=== PATIENT | female | born 1965 | race Caucasian/White ===

== ENCOUNTER 2017-08-09 09:32 | Emergency (ER) | payer OTHER ==
[~2017-08-09] VITALS: Ht 167.6 cm; Wt 102.2 kg
[2017-08-09 09:37] VITALS: BP 154/104; PULSE 87; RESP 16; TEMP 98; O2SAT 95
[2017-08-09] MEDS ORDERED: predniSONE 20 MG TAB PO ONE (10:00)
[2017-08-09] MEDS ORDERED: guaiFENesin/CODEINE SYRUP 200 MG/20 MG/10 ML CUP PO ONE (10:00)
--- NOTE | 2017-08-09 10:02 | PD ---
HPI Chief Complaint: Cold / Flu Symptoms Time Seen by Provider: 09:48 Travel History International Travel<30 days: No Contact w/Intl Traveler<30days: No Traveled to known affect area: No History of Present Illness HPI 51yo F with PMH of HTN presents to the ED with c/o cough, nasal congestion and chest congestion for 3 days. Denies any fever, chest pain, sob, n/v, abdominal pain, diarrhea, focal weakness or numbness. Took robitussin last night and didnt work. Symptoms are worst at night and lying down. Said she has been coughing so much, now her throat hurts and there was some pain in epigastric region when she coughs. Pt smokes 3 times a week. PFSH Past Medical History Cardiovascular Problems: Yes (htn on meds) ?: Not Social History Tobacco Use: No Allergies-Medications (Allergen,Severity, Reaction): Coded Allergies: No Known Allergies (Unverified , 08/09/17) Reported Meds & Prescriptions Reported Meds & Active Scripts Active Robitussin Lingering Cold (Dextromethorphan HBr) 15 Mg Cap 30 Mg PO Q8H PRN 5 Days Ventolin Hfa 18 GM Inh (Albuterol Sulfate) 90 Mcg/Act Aer 2 Puff INH Q4H PRN Deltasone (Prednisone) 20 Mg Tab 20 Mg PO BID 5 Days Reported Hydrochlorothiazide 25 Mg Tab 25 Mg PO DAILY Review of Systems Except as stated in HPI: all other systems reviewed are Neg Physical Exam Narrative GENERAL: 51yo F in mild distress. SKIN: Focused skin assessment warm/dry. HEAD: Atraumatic. Normocephalic. EYES: Pupils equal and round. No scleral icterus. No injection or drainage. ENT: Throat: Uvula midline. No tonsillar exudate. NECK: Trachea midline. No JVD. CARDIOVASCULAR: Regular rate and rhythm. No murmur appreciated. RESPIRATORY: No accessory muscle use. Expiratory wheezing bilaterally. GASTROINTESTINAL: Abdomen soft, non-tender, nondistended. MUSCULOSKELETAL: No obvious deformities. No clubbing. No cyanosis. No edema. NEUROLOGICAL: Awake and alert. No obvious cranial nerve deficits. Motor grossly within normal limits. Normal speech. PSYCHIATRIC: Appropriate mood and affect; insight and judgment normal. Data Data Last Documented VS Vital Signs Date Time Temp Pulse Resp B/P (MAP) Pulse Ox O2 Delivery O2 Flow Rate FiO2 08/09/17 09:58 96 08/09/17 09:37 98.0 87 16 154/104 (121) Orders Orders Influenzae A/B Antigen (08/09/17 09:55) Electrocardiogram (08/09/17 ) Chest, Single Ap (08/09/17 ) Albuterol-Ipratropium Neb (Duoneb Neb) (08/09/17 10:00) Prednisone (Deltasone) (08/09/17 10:00) Guaifen-Cod 200-20 Mg/10ml Liq (Robituss (08/09/17 10:00) Ed Discharge Order (08/09/17 11:35) MDM Medical Decision Making Medical Screen Exam Complete: Yes Emergency Medical Condition: Yes Interpretation(s) EKG: NSR 71bpm. Normal axis. No ST segment elevation or depression. Differential Diagnosis URI vs. bronchitis vs. COPD vs. pneumonia Narrative Course 51yo F with cold like symptoms for 3 days. Denies any chest pain or sob but coughing is worst at night and is a cig smoker. Pt does have wheezing bilaterally so duonebs x3 and prednisone ordered. Also given robitussin with codene. Pt reevaluated at bedside and feels much better. Pt still with mild end expiratory wheezing bilaterally but improve air entry. Pt still denies any chest pain or sob. CXR normal. Influenza negative. Return precautions given. Diagnosis Primary Impression: URI (upper respiratory infection) Qualified Codes: J06.9 - Acute upper respiratory infection, unspecified Patient Instructions: General Instructions Departure Forms: Tests/Procedures Additional Instructions: Please follow up with your primary care physician in 2-3 days. Return to the ED if symptoms worsen. Med/Other Pt SpecificInfo: Prescription(s) given Scripts Dextromethorphan (Robitussin Lingering Cold) 15 Mg Cap 30 MG PO Q8H Y for COUGH for 5 Days, #30 CAP 0 Refills Prov: Boyce,Mariluz DO 08/09/17 Albuterol 18 GM Inh (Ventolin Hfa 18 GM Inh) 90 Mcg/Act Aer 2 PUFF INH Q4H Y for SHORTNESS OF BREATH, #1 INHALER 0 Refills Prov: BoyceMariluz DO 08/09/17 Prednisone (Deltasone) 20 Mg Tab 20 MG PO BID for 5 Days, #10 TAB 0 Refills Prov: Mariluz Boyce DO 08/09/17 Disposition: 01 DISCHARGE HOME Condition: Stable Mariluz Boyce DO Aug 09, 2017 10:02
[2017-08-09] MEDS ORDERED: HYDR25TA5 PO (10:03)
[2017-08-09] MEDS: RESP: ALBUTEROL 2.5 MG/IPRATROPIUM 0.5 MG NEB (SCH) INH ×2 (10:10→10:11)
--- NOTE | 2017-08-09 10:31 | RADRPT ---
EXAM DATE/TIME: 08/09/2017 10:16 [facility] COMPARISON: No previous studies available for comparison. INDICATIONS : Short of breath, cough, congestion x 3 days. MEDICAL HISTORY : Hypertension. Smoker. SURGICAL HISTORY : None. ENCOUNTER: Initial ACUITY: 3 days PAIN SCORE: 0/10 LOCATION: chest FINDINGS: A single view of the chest demonstrates the lungs to be symmetrically aerated without evidence of mas s, infiltrate or effusion. The cardiomediastinal contours are unremarkable. Osseous structures are intact. CONCLUSION: Normal examination for a patient of this age. Vadim Myles MD on August 09, 2017 at 10:28 Board Certified Radiologist. This report was verified electronically.
[2017-08-09] MEDS ORDERED: VENTAER INH (11:16)
[2017-08-09] MEDS ORDERED: PRED-503 PO (11:16)
[2017-08-09] MEDS ORDERED: ROBICAP2 PO (11:16)
--- NOTE | 2017-08-09 13:39 | EKG ---
Date Performed: 08/09/2017 Time Performed: 10:06:32 PTAGE: 51 years EKG: Sinus rhythm NORMAL ECG NO PREVIOUS TRACING DOCTOR: Celso Llamas Interpretating Date/Time 08/09/2017 13:38:17
== END 2017-08-09 11:48 | disposition home or self-care (01) ==
LOC: PHED 09:32
DX: J06.9 Acute upper respiratory infection, unspecified (principal); I10 Essential (primary) hypertension
CPT/HCPCS: 71045; 87804; 93005; 94640; 94664; 99285; J7512

== ENCOUNTER 2017-09-24 03:13 | Emergency (ER) | payer SELFPAY ==
[~2017-09-24 03:13] MED LIST: HYDR25TA5 PO; PRED-503 PO; ROBICAP2 PO; VENTAER INH
[2017-09-24] MEDS ORDERED: ASPIRIN 81 MG CHEW TAB PO ONE (03:30)
[2017-09-24] MEDS ORDERED: NITROGLYCERIN 0.4 MG SL 25 TABS/BTL SL SCH (03:30)
== END 2017-09-24 03:20 | disposition left against medical advice (07) ==
LOC: PHED 03:13
DX: R07.9 Chest pain, unspecified (principal); Z53.21 Procedure and treatment not carried out due to patient leaving prior to being seen by health care provider

== ENCOUNTER 2017-10-05 19:14 | Emergency (ER) | payer SELFPAY ==
[~2017-10-05] VITALS: Ht 167.6 cm; Wt 101.0 kg
[2017-10-05 19:33] VITALS: BP 148/84; PULSE 89; RESP 16; TEMP 98.3; O2SAT 96
[2017-10-05] MEDS ORDERED: IBUPROFEN 800 MG TAB PO ONE (20:00)
[2017-10-05] MEDS ORDERED: AUGM875T3 PO (20:07)
[2017-10-05] MEDS ORDERED: IBUP1TAB7 PO (20:07)
--- NOTE | 2017-10-05 20:07 | PD ---
HPI Chief Complaint: Cold / Flu Symptoms Time Seen by Provider: 19:49 Travel History International Travel<30 days: No Contact w/Intl Traveler<30days: No Traveled to known affect area: No History of Present Illness HPI Patient is 51-year-old female presenting to emerge department for evaluation of sore throat, headache, earache, subjective fevers and chills, nasal congestion, 3 episodes of diarrhea. Patient states her symptoms started 2 AM this morning. She has had 3 bowel movements which she describes as loose, they are not watery, no mucus, no explosive diarrhea. She states her cough is nonproductive , she reports a decreased appetite. Headache is similar to headache she has had in the past, she describes as dull, frontal and pressure-like. Again she does not quantify her pain. She denies any actual pain but states she just "feels like crap". She reports a history of hypertension. Symptom onset was gradual, symptoms are mild in nature. Patient states she had to call out of work today and is concerned that she will lose her job. PFSH Past Medical History Cardiovascular Problems: Yes (HTN) Hypertension: Yes Tetanus Vaccination: < 5 Years Influenza Vaccination: No ?: Not Menopausal: Yes Past Surgical History Surgical History: No Previous Surgery Social History Alcohol Use: No Tobacco Use: Yes (rarely) Substance Use: No Allergies-Medications (Allergen,Severity, Reaction): Coded Allergies: No Known Allergies (Unverified , 10/05/17) Reported Meds & Prescriptions Reported Meds & Active Scripts Active Robitussin Lingering Cold (Dextromethorphan HBr) 15 Mg Cap 30 Mg PO Q8H PRN 5 Days Ventolin Hfa 18 GM Inh (Albuterol Sulfate) 90 Mcg/Act Aer 2 Puff INH Q4H PRN Deltasone (Prednisone) 20 Mg Tab 20 Mg PO BID 5 Days Reported Hydrochlorothiazide 25 Mg Tab 25 Mg PO DAILY Review of Systems Except as stated in HPI: all other systems reviewed are Neg General / Constitutional: Positive: Fever (Subjective), Chills Eyes: No: Blurred Vision HENT: Positive: Headaches, Sore Throat, Rhinitis, Congestion, Earache, No: Lightheadedness Cardiovascular: No: Chest Pain or Discomfort Respiratory: Positive: Cough (Nonproductive), No: Shortness of Breath Gastrointestinal: Positive: Diarrhea (3 today, resolved now), No: Nausea, Vomiting, Abdominal Pain Genitourinary: No: Dysuria Musculoskeletal: Positive: Myalgias Physical Exam Narrative GENERAL: Well-developed, well-nourished, well-kept -[place]ian female. Presenting in no acute distress. SKIN: Warm and dry. HEAD: Atraumatic. Normocephalic. EYES: Pupils equal and round. No scleral icterus. No injection or drainage. ENT: No nasal bleeding or discharge. Mucous membranes pink and moist. Posterior pharynx with cobblestone appearance. EARS: Bilateral pinnae and external canals appear within normal limits. Bilateral tympanic membranes without erythema, dullness or perforation. NECK: Trachea midline. No JVD. CARDIOVASCULAR: Regular rate and rhythm. RESPIRATORY: No accessory muscle use. Clear to auscultation. Breath sounds equal bilaterally. No wheezes, rhonchi, rales noted. GASTROINTESTINAL: Abdomen soft, non-tender, nondistended. Hepatic and splenic margins not palpable. MUSCULOSKELETAL: Extremities without clubbing, cyanosis, or edema. No obvious deformities. NEUROLOGICAL: Awake and alert. No obvious cranial nerve deficits. Motor grossly within normal limits. Five out of 5 muscle strength in the arms and legs. Normal speech. PSYCHIATRIC: Appropriate mood and affect; insight and judgment normal. Data Data Last Documented VS Vital Signs Date Time Temp Pulse Resp B/P (MAP) Pulse Ox O2 Delivery O2 Flow Rate FiO2 10/05/17 19:33 98.3 89 16 148/84 (105) 96 [facility] Medical Decision Making Medical Screen Exam Complete: Yes Emergency Medical Condition: Yes Interpretation(s) Vital Signs Date Time Temp Pulse Resp B/P (MAP) Pulse Ox O2 Delivery O2 Flow Rate FiO2 10/05/17 19:33 98.3 89 16 148/84 (105) 96 Differential Diagnosis Otitis media versus otitis externa versus pharyngitis versus viral URI versus bronchitis versus other Narrative Course Patient is a 51-year-old female, she is well-appearing, presenting with less than 1 day of upper respiratory symptoms. Patient's physical examination appears most consistent with a viral syndrome. She is afebrile, she has not taken any medications to alleviate her symptoms. Patient is requesting a work note, she will be given a prescription for backup antibiotic however she was advised to trial conservative symptom management at this time. She is encouraged to follow with a primary doctor, she states she does not have insurance, she was educated on the [facility]. She will be given a flyer. She is encouraged return to emergency department for any new worsening symptoms. Patient verbalized understanding of instructions. Patient stable for discharge. She was given an ibuprofen in the emergency department prior to discharge. Diagnosis Primary Impression: Viral URI with cough Referrals: [facility] Patient Instructions: General Instructions, Upper Respiratory Infection (ED) Departure Forms: Tests/Procedures, Work Release Enter return to work date: October 07, 2017 Special Instructions: Please excuse absence Additional Instructions: Continue conservative symptom management. Take ibuprofen as needed and as directed for pain, headache, fevers Trial [id number] nasal decongestant as needed and as directed Follow-up at the [facility] Return to emergency department for any new or worsening symptoms Med/Other Pt SpecificInfo: Prescription(s) given Scripts Ibuprofen (Ibuprofen) 800 Mg Tab 800 MG PO Q8H Y for Pain/Inflammation, #60 TAB 0 Refills Prov: Nora Delgado 10/05/17 Amoxicillin-Clavulanate (Augmentin) 875-125 Mg Tab 1 TAB PO BID for Infection, #20 TAB 0 Refills Prov: Nora Delgado 10/05/17 Disposition: 01 DISCHARGE HOME Condition: Stable Nora Delgado October 05, 2017 20:07
== END 2017-10-05 20:37 | disposition home or self-care (01) ==
LOC: NEPD 19:14
DX: J06.9 Acute upper respiratory infection, unspecified (principal); R51 Headache; R19.7 Diarrhea, unspecified; I10 Essential (primary) hypertension; Z79.899 Other long term (current) drug therapy; Z72.0 Tobacco use
CPT/HCPCS: 99283

== ENCOUNTER 2017-10-12 10:34 | Emergency (ER) | payer SELFPAY ==
[~2017-10-12] VITALS: Ht 167.6 cm; Wt 100.0 kg
[~2017-10-12 10:34] MED LIST changes: +AUGM875T3 PO; +IBUP1TAB7 PO
[2017-10-12 10:39] VITALS: BP 159/105; PULSE 104; RESP 18; TEMP 97.3; O2SAT 98
[2017-10-12 11:04] VITALS: BP 148/100; PULSE 84; RESP 18; O2SAT 97
[2017-10-12] MEDS ORDERED: ACETAMINOPHEN 500 MG CPLT PO ONE (11:15)
--- NOTE | 2017-10-12 11:16 | PD ---
HPI Chief Complaint: Hypertension Time Seen by Provider: 11:02 Travel History International Travel<30 days: No Contact w/Intl Traveler<30days: No Traveled to known affect area: No History of Present Illness HPI This is a 51-year-old -[place] female who presents for evaluation of headache. She reports that yesterday she had some mild left-sided neck stiffness. She reports that this morning she developed a mild frontal pulsating headache. It is not the worst headache of her life. There is no thunderclap onset. She reports that she did not have any medication at home to help with the headache. She was concerned because she noted that her blood pressure was high yesterday and today, as high as 173/120. She reports that she has been on a regimen of hydrochlorothiazide 25 mg once a day for 20 years. She moved recently from [place] to the [facility] and she does not currently have a primary care physician. Denies any other symptoms such as blurred vision, nausea or vomiting, visual changes, tinnitus, chest pain or shortness of breath, numbness or tingling or weakness. No other complaints at this time. PFSH Past Medical History Cardiovascular Problems: Yes (HTN) Hypertension: Yes ?: Not Menopausal: Yes Social History Alcohol Use: No Tobacco Use: Yes (rarely) Substance Use: No Allergies-Medications (Allergen,Severity, Reaction): Coded Allergies: No Known Allergies (Unverified , 10/05/17) Reported Meds & Prescriptions Reported Meds & Active Scripts Active Lisinopril 10 Mg Tab 10 Mg PO DAILY Ibuprofen 800 Mg Tab 800 Mg PO Q8H PRN Augmentin (Amoxicillin-Clavulanate) 875-125 Mg Tab 1 Tab PO BID Robitussin Lingering Cold (Dextromethorphan HBr) 15 Mg Cap 30 Mg PO Q8H PRN 5 Days Ventolin Hfa 18 GM Inh (Albuterol Sulfate) 90 Mcg/Act Aer 2 Puff INH Q4H PRN Deltasone (Prednisone) 20 Mg Tab 20 Mg PO BID 5 Days Reported Hydrochlorothiazide 25 Mg Tab 25 Mg PO DAILY Review of Systems Except as stated in HPI: all other systems reviewed are Neg Physical Exam Narrative GENERAL: Well-developed well-nourished female no acute distress SKIN: Warm and dry. HEAD: Atraumatic. Normocephalic. EYES: Pupils equal and round. No scleral icterus. No injection or drainage. ENT: No nasal bleeding or discharge. Mucous membranes pink and moist. NECK: Trachea midline. No JVD. CARDIOVASCULAR: Regular rate and rhythm. No murmur appreciated. RESPIRATORY: No accessory muscle use. Clear to auscultation. Breath sounds equal bilaterally. GASTROINTESTINAL: Abdomen soft, non-tender, nondistended. Hepatic and splenic margins not palpable. MUSCULOSKELETAL: No obvious deformities. No clubbing. No cyanosis. No edema. There is no tenderness to palpation along the cervical midline spine or paravertebral musculature. The patient maintains full range of motion of the neck. NEUROLOGICAL: Awake and alert. No obvious cranial nerve deficits. Motor grossly within normal limits. Normal speech. Data Data Last Documented VS Vital Signs Date Time Temp Pulse Resp B/P (MAP) Pulse Ox O2 Delivery O2 Flow Rate FiO2 10/12/17 11:04 84 18 148/100 (116) 97 Room Air 10/12/17 10:39 97.3 Orders Orders Complete Blood Count With Diff (10/12/17 11:10) Basic Metabolic Panel (Bmp) (10/12/17 11:10) Ct Brain W/O Iv Contrast(Rout) (10/12/17 11:10) Electrocardiogram (10/12/17 ) Acetaminophen (Tylenol) (10/12/17 11:15) Potassium Chloride (Kcl) (10/12/17 12:15) Ed Discharge Order (10/12/17 12:16) Labs Laboratory Tests Test 10/12/17 11:25 White Blood Count 10.3 TH/MM3 Red Blood Count 4.46 MIL/MM3 Hemoglobin 14.5 GM/DL Hematocrit 43.7 % Mean Corpuscular Volume 97.8 FL Mean Corpuscular Hemoglobin 32.5 PG Mean Corpuscular Hemoglobin Concent 33.3 % Red Cell Distribution Width 12.4 % Platelet Count 328 TH/MM3 Mean Platelet Volume 9.2 FL Neutrophils (%) (Auto) 68.1 % Lymphocytes (%) (Auto) 19.2 % Monocytes (%) (Auto) 8.4 % Eosinophils (%) (Auto) 3.6 % Basophils (%) (Auto) 0.7 % Neutrophils # (Auto) 7.1 TH/MM3 Lymphocytes # (Auto) 2.0 TH/MM3 Monocytes # (Auto) 0.9 TH/MM3 Eosinophils # (Auto) 0.4 TH/MM3 Basophils # (Auto) 0.1 TH/MM3 CBC Comment DIFF FINAL Differential Comment Blood Urea Nitrogen 18 MG/DL Creatinine 1.24 MG/DL Random Glucose 86 MG/DL Calcium Level 9.2 MG/DL Sodium Level 142 MEQ/L Potassium Level 3.3 MEQ/L Chloride Level 105 MEQ/L Carbon Dioxide Level 29.3 MEQ/L Anion Gap 8 MEQ/L Estimat Glomerular Filtration Rate 45 ML/MIN MDM Medical Decision Making Medical Screen Exam Complete: Yes Emergency Medical Condition: Yes Medical Record Reviewed: Yes Differential Diagnosis Essential hypertension, hypertensive urgency, subarachnoid hemorrhage, hypertensive emergency, tension headache, migraine Narrative Course Plan is for basic lab work, CT the brain. An EKG was obtained in triage revealing sinus rhythm. The patient will be given Tylenol for her headache. I reviewed her records. She has been seen in the [facility] setting 3 times in the past 2 months and her blood pressure has ranged between 140 and 150 systolic during those visits. Consistent with her blood pressure here today. The patient declines urinalysis, which was primarily intended to evaluate for proteinuria. Tylenol has improved the patient's headache. CT brain reveals no acute normalities. Clinically there is no suspicion of subarachnoid hemorrhage. Lab work is been reviewed. Potassium is 3.3, oral potassium chloride ordered. GFR is 45. The patient reports that she is in the process of establishing care with a new primary care physician and he wanted her to get some outpatient lab work which she has not been able to do yet. She will be given a copy of her current test results and she will be started on a low-dose lisinopril. Diagnosis Primary Impression: Hypertension Additional Impression: Cephalgia Departure Forms: Tests/Procedures, Work Release Enter return to work date: October 15, 2017 Additional Instructions: Please provide the patient a copy of all of her test results upon discharge. Medication as prescribed. Monitor blood pressure on a regular basis and keep a journal of these readings. Follow-up with primary care. Return for any emergent medical conditions. Med/Other Pt SpecificInfo: Prescription(s) given Scripts Lisinopril (Lisinopril) 10 Mg Tab 10 MG PO DAILY, #30 TAB 0 Refills Prov: Vinh Roca MD 10/12/17 Disposition: 01 DISCHARGE HOME Condition: Stable Jovi Massey October 12, 2017 11:16
[2017-10-12 11:44] LABS: AUTOMATED NEUTROPHIL # 7.1 TH/MM3 (1.8-7.7); BASOPHIL # 0.1 TH/MM3 (0-0.2); BASOPHIL % 0.7 % (0.0-2.0); EOSINOPHIL # 0.4 TH/MM3 (0-0.4); EOSINOPHIL % 3.6 % (0.0-4.0); HEMATOCRIT 43.7 % (35.0-46.0); HEMOGLOBIN 14.5 GM/DL (11.6-15.3); LYMPH % 19.2 % (9.0-44.0); MEAN CELL VOLUME 97.8 FL (80.0-100.0); MEAN CORPUSCULAR HEMOGLOBIN 32.5 PG (27.0-34.0); MEAN CORPUSCULAR HGB CONC 33.3 % (32.0-36.0); MEAN PLATELET VOLUME 9.2 FL (7.0-11.0); MONO % 8.4 % (0.0-8.0); MONOCYTE # 0.9 TH/MM3 (0-0.9); NEUT % 68.1 % (16.0-70.0); PLATELET COUNT 328 TH/MM3 (150-450); RED BLOOD COUNT 4.46 MIL/MM3 (4.00-5.30); RED CELL DISTRIBUTION WIDTH 12.4 % (11.6-17.2); WHITE BLOOD COUNT 10.3 TH/MM3 (4.0-11.0)
--- NOTE | 2017-10-12 11:55 | RADRPT ---
EXAM DATE/TIME: 10/12/2017 11:29 [facility] COMPARISON: No previous studies available for comparison. INDICATIONS : Mild frontal headache, hypertension, left side neck stiffness. RADIATION DOSE: 56.35 CTDIvol (mGy) MEDICAL HISTORY : Hypertension. SURGICAL HISTORY : None. ENCOUNTER: Initial ACUITY: 1 day PAIN SCALE: 3/10 LOCATION: Bilateral frontal TECHNIQUE: Multiple contiguous axial images were obtained of the head. Using automated exposure control and adj ustment of the mA and/or kV according to patient size, radiation dose was kept as low as reasonably a chievable to obtain optimal diagnostic quality images. DICOM format image data is available electro nically for review and comparison. FINDINGS: CEREBRUM: The ventricles are normal for age. No evidence of midline shift, mass lesion, hemorrhage or acute in farction. No extra-axial fluid collections are seen. POSTERIOR FOSSA: The cerebellum and brainstem are intact. The 4th ventricle is midline. The cerebellopontine angle i s unremarkable. EXTRACRANIAL: The visualized portion of the orbits is intact. SKULL: The calvaria is intact. No evidence of skull fracture. CONCLUSION: Negative, subacute subarachnoid hemorrhage can't be entirely excluded. Puma Paige MD FACR on October 12, 2017 at 11:52 Board Certified Radiologist. This report was verified electronically.
[2017-10-12 12:09] LABS: BICARBONATE 29.3 MEQ/L (21.0-32.0); CALCIUM 9.2 MG/DL (8.5-10.1); CREATININE 1.24 MG/DL (0.50-1.00)
[2017-10-12] MEDS ORDERED: POTASSIUM CHLORIDE 20 MEQ CONTROLLED RELEASE TAB PO ONE (12:15)
[2017-10-12] MEDS ORDERED: LISI10TA3 PO (12:15)
--- NOTE | 2017-10-13 08:16 | EKG ---
Date Performed: 10/12/2017 Time Performed: 10:55:27 PTAGE: 51 years EKG: Sinus rhythm NORMAL ECG PREVIOUS TRACING : 08/09/2017 10.06 DOCTOR: Felicity Valencia Interpretating Date/Time 10/13/2017 08:14:49
== END 2017-10-12 13:08 | disposition home or self-care (01) ==
LOC: NEPE 10:34
DX: I10 Essential (primary) hypertension (principal); R51 Headache; Z72.0 Tobacco use
CPT/HCPCS: 70450; 80048; 85025; 93005; 99285